=== PATIENT | male | born 1975 | race African-American/Black ===

== ENCOUNTER 2016-07-16 11:32 | Emergency (ER) | payer MEDICAID ==
[2015-06-12 09:16] VITALS: BMI 29.0
[~2016-07-16 11:32] MED LIST: ATENOLOL; INDERAL 40 MG T40 MG PO; LITHIUM CARBON300 MG PO; SEROQUEL300 MG PO; ZOLOFT50 MG PO
== END 2016-07-16 11:33 | disposition home or self-care (01) ==
LOC: D.ER 11:32
DX: Z02.9 Encounter for administrative examinations, unspecified (principal)